=== PATIENT | female | born 1975 | race Caucasian/White ===

== ENCOUNTER 2017-02-02 03:23 | Emergency (ER) | payer OTHER ==
[~2017-02-02] VITALS: Ht 154.9 cm; Wt 67.1 kg
[2017-02-02 04:22] VITALS: BP 173/106
== END 2017-02-02 04:22 | disposition other institution (70) ==
LOC: ED 03:23
DX: Z02.89 Encounter for other administrative examinations (principal); I10 Essential (primary) hypertension; E11.9 Type 2 diabetes mellitus without complications; Z88.6 Allergy status to analgesic agent

== ENCOUNTER 2017-02-02 03:23 | Emergency (ER) | payer OTHER | END 2017-02-02 04:22 | disposition other institution (70) | LOC: ED 03:23 | DX: Z02.89 Encounter for other administrative examinations (principal) ==